=== PATIENT | female | born 1955 | race Caucasian/White ===

== ENCOUNTER → 2017-02-09 | Outpatient (CLI) | payer BC ==
[~2017-02-09] MED LIST: CHOL100027 PO; LEVO75TA PO
--- NOTE | 2017-02-09 16:21 | MAMMOGRAPHY REPORT ---
BILATERAL DIGITAL SCREENING MAMMOGRAM TOMOSYNTHESIS WITH CAD: 02/09/2017 CLINICAL HISTORY: Routine screening. Patient has no complaints. TECHNIQUE: Breast tomosynthesis in addition to standard 2D mammography was performed. Current study was also evaluated with a Computer Aided Detection (CAD) system. COMPARISON: Comparison is made to exams dated: 07/15/2014 mammogram, 06/14/2013 mammogram, 04/24/2012 mammogram, 02/28/2011 mammogram, 02/25/2010 mammogram - [facility], and 01/12/2009. BREAST COMPOSITION: There are scattered areas of fibroglandular density in both breasts. FINDINGS: No suspicious masses, calcifications, or areas of architectural distortion are noted in ei ther breast. There has been no significant interval change compared to prior exams. Focal asymmetry in the right superior breast at approximately 12:00 is stable dating back to at least the 2008 exam. Scattered bilateral benign-appearing calcifications are not significantly changed. IMPRESSION: ACR BI-RADS CATEGORY 2: BENIGN There is no mammographic evidence of malignancy. A 1 year screening mammogram is recommended. The pa tient will receive written notification of the results. Approximately 10% of breast cancers are not detected with mammography. A negative mammographic report should not delay biopsy if a clinically suggestive mass is present. Rain Leo M.D. /:02/09/2017 16:12:15 Medical Authorization Specialist: Justine Christopher, [facility] letter sent: Normal 1/2 BI-RADS Code: ACR BI-RADS Category 2: Benign
== END | disposition home or self-care (01) ==
LOC: C.MAMM 09:31
PROVIDERS: ATTEND Internal Medicine
DX: Z12.31 Encounter for screening mammogram for malignant neoplasm of breast (principal)

== ENCOUNTER 2019-12-29 20:22 | Inpatient (IN) ==
--- NOTE | 2019-12-29 21:07 | Emergency Department Note ---
History of Present Illness General Chief complaint: Flu Like Symptoms Stated complaint: FEVER, SOB, COUGH Time Seen by Provider: 12/29/19 20:47 Source: patient Mode of arrival: ambulatory Limitations: no limitations History of Present Illness Maximum Pain Intensity: 6 This patient comes in after not feeling well for several days. It started on Monday. She tells me she feels she had every COVID symptoms with exception of sore throat and difficulty with taste and smell. She has been laying low and has had no exposure to COVID known her 's been to the store but she has not. Her is well. She has had a headache body aches fever she is had a little bit of a cough as well. Had some nausea and vomiting no significant diarrhea. She has body aches she did have a rash on her arm and her doctor s tart on doxycycline a couple weeks ago. No fall or trauma. No abdominal pain. She says that her main complaint today is that she feels short of breath mostly with exertion. She did get COVID testing yesterday at [facility] but says the results are not back yet. She does have a pulse ox at home and says her worst reading was 92% Home Medications Home Medications Medication Instructions Recorded Confirmed Type levothyroxine 88 mcg capsule 88 mcg PO DAILY 04/17/19 12/29/19 History calcium carbonate-vitamin D3 600 1 tab PO DAILY tab 05/20/19 12/29/19 History mg(1,500 mg)-400 unit chewable tablet mecobalamin (vitamin B12) 1,000 1,000 mcg SL DAILY 05/20/19 12/29/19 History mcg disintegrating tablet,sublingual acetaminophen [Tylenol Extra 1,000 mg PO Q6H PRN 12/29/19 12/29/19 History Strength] anastrozole [Arimidex] 1 mg PO DAILY 12/29/19 12/29/19 History ascorbic acid (vitamin C) [Vitamin 500 mg PO DAILY 12/29/19 12/29/19 History C] Allergies Allergy/AdvReac Type Severity Reaction Status Date / Time No Known Allergies Allergy Mild Verified 12/29/19 21:47 Past Med/Surg History Medical History Anemia (Inactive) Hypercholesteremia (Chronic) Liver cyst (Resolved) Malignant neoplasm of central portion of right breast in female, estrogen receptor positive (Chronic) Surgical History History of appendectomy (Resolved) S/P tonsillectomy and adenoidectomy Family History Mother , age 78 CHF No problems noted. Father , age 81 heart prob also diabetic No problems noted. Sister No problems noted. Sister No problems noted. Brother No problems noted. Brother , age 32 alcoholism No problems noted. Social History Smoking Status: Never smoker Hx Alcohol Use: Yes Alcohol type: hard liquor Alcohol Intake Frequency Comment: 2 drinks per week Hx Substance Use: No Preferred Language: Armenian Visual Impairment: No Limitations Hearing Ability: Normal Beliefs That Will Affect Care: None marital status: Current Living Situation: Spouse current occupational status: employed current occupation: [employer] Feels Safe at Home: Yes Childhood Exposure to Second-Hand Smoke: Yes caffeine: Yes (tea one cup per day) during the past year weight has: increased > 10 lbs Dental Care, Regularly: No Physical Activity Frequency: Does not Exercise Review of Systems A total of 10 systems reviewed and were otherwise negative Physical Exam Vital Signs Vital Signs - 24 hr 12/29/19 20:26 12/29/19 21:30 12/29/19 22:00 Temperature 37.5 C Temperature Source Oral Pulse Rate 123 H 105 H Pulse Rate from SpO2 Sensor 104 H Respiratory Rate 20 20 18 Respiratory Effort / Characteristics Non-Labored Spontaneous Non-Labored Non-Labored Spontaneous Respiratory Depth Normal Blood Pressure 113/71 Blood Pressure Mean 85 Pulse Oximetry 96 96 96 Oxygen Delivery Method Room Air Room Air Room Air Sepsis Recent Fever Within 48 Hours No Sepsis New/Unexplained Change in Mental Status No Sepsis Action Taken by Nursing No Action Required 12/29/19 22:15 12/29/19 22:30 12/29/19 22:31 Temperature Temperature Source Pulse Rate 103 H 105 H 105 H Pulse Rate from SpO2 Sensor 106 H 105 H 105 H Respiratory Rate 16 18 14 Respiratory Effort / Characteristics Non-Labored Spontaneous Respiratory Depth Blood Pressure 128/73 Blood Pressure Mean 94 Pulse Oximetry 94 98 96 Oxygen Delivery Method Room Air Sepsis Recent Fever Within 48 Hours Sepsis New/Unexplained Change in Mental Status Sepsis Action Taken by Nursing 12/29/19 22:45 12/29/19 23:00 12/29/19 23:01 Temperature Temperature Source Pulse Rate 111 H 118 H 121 H Pulse Rate from SpO2 Sensor 101 H 117 H 126 H Respiratory Rate 20 18 14 Respiratory Effort / Characteristics Non-Labored Spontaneous Respiratory Depth Blood Pressure 106/77 Blood Pressure Mean 79 Pulse Oximetry 100 97 100 Oxygen Delivery Method Room Air Sepsis Recent Fever Within 48 Hours Sepsis New/Unexplained Change in Mental Status Sepsis Action Taken by Nursing 12/29/19 23:37 12/29/19 23:38 12/29/19 23:45 Temperature Temperature Source Pulse Rate 106 H 108 H Pulse Rate from SpO2 Sensor 106 H 108 H Respiratory Rate 23 16 Respiratory Effort / Characteristics Respiratory Depth Blood Pressure 136/68 Blood Pressure Mean 80 Pulse Oximetry 97 92 Oxygen Delivery Method Sepsis Recent Fever Within 48 Hours Sepsis New/Unexplained Change in Mental Status Sepsis Action Taken by Nursing 12/29/19 23:46 12/30/19 00:00 12/30/19 00:01 Temperature Temperature Source Pulse Rate 108 H 110 H Pulse Rate from SpO2 Sensor 107 H 110 H Respiratory Rate 22 22 23 Respiratory Effort / Characteristics Non-Labored Spontaneous Non-Labored Spontaneous Respiratory Depth Blood Pressure 148/91 H Blood Pressure Mean 125 Pulse Oximetry 97 96 97 Oxygen Delivery Method Room Air Room Air Sepsis Recent Fever Within 48 Hours Sepsis New/Unexplained Change in Mental Status Sepsis Action Taken by Nursing 12/30/19 00:15 12/30/19 00:30 12/30/19 00:45 Temperature Temperature Source Pulse Rate 105 H 101 H Pulse Rate from SpO2 Sensor 108 H 105 H 101 H Respiratory Rate 26 H 20 17 Respiratory Effort / Characteristics Non-Labored Spontaneous Respiratory Depth Blood Pressure 119/70 Blood Pressure Mean 84 Pulse Oximetry 96 99 97 Oxygen Delivery Method Room Air Sepsis Recent Fever Within 48 Hours Sepsis New/Unexplained Change in Mental Status Sepsis Action Taken by Nursing 12/30/19 01:00 12/30/19 01:01 Temperature Temperature Source Pulse Rate 106 H 97 H Pulse Rate from SpO2 Sensor 106 H 104 H Respiratory Rate 20 21 Respiratory Effort / Characteristics Non-Labored Spontaneous Respiratory Depth Blood Pressure 111/65 Blood Pressure Mean 75 Pulse Oximetry 98 94 Oxygen Delivery Method Room Air Sepsis Recent Fever Within 48 Hours Sepsis New/Unexplained Change in Mental Status Sepsis Action Taken by Nursing General: Well developed well nourished not ill-appearing middle-age female who appears in no acute distress, breathing comfortably on room air. Normal speech HEENT: Normal cephalic atraumatic. Pupils are equal round and reactive to light. Sclera anicteric extraocular movements are intact. Oropharynx is pink with moist mucous membranes. No swelling of the mouth lips or tongue. Neck: Supple with a midline trachea. No meningeal signs or stiffness, no JVD or bruits. No Stridor. Negative Kernig and Brudzinski sign Chest: Clear to auscultation bilaterally. No wheezes or rhonchi. No increased work of breathing. Heart: Regular rate and rhythm without murmurs or gallops. Abdomen: Soft nontender, nondistended without rebound guarding or rigidity. Extremities: No cyanosis clubbing or edema. No calf tenderness or assymetry Spine/Back. Non tender to palpation. No CVA tenderness Skin: Good turgor without rashes. Neurologic exam: Cranial nerves two through 12 are intact. Motor and sensation are intact and symmetrical throughout. Course Administered Medications Discontinued Medications Sodium Chloride (Nss 1000ml) 1,000 mls @ 999 mls/hr IV .Q1H1M ONE Stop: 12/30/19 01:25 Last Admin: 12/30/19 00:37 Dose: 999 mls/hr Documented by: [id number] Ioversol (Optiray 320 125ml) 117 ml IV ONCE ONE Stop: 12/29/19 23:24 Last Admin: 12/29/19 23:23 Dose: 117 ml Documented by: [id number] Potassium Chloride (Klor-Con M20) 40 meq PO NOW STA Stop: 12/30/19 00:33 Last Admin: 12/30/19 00:52 Dose: 40 meq Documented by: [id number] Medical Decision Making Differential Diagnosis Viral illness, tickborne illness, COVID, pneumonia, sepsis, UTI, electrolyte or metabolic abnormality, cardiac disease, PE Medical Records Attestation: I reviewed the patient's medical records. Home Medications Current Medication List: was personally reviewed by me Laboratory Data Attestation: I reviewed the patient's lab results. Result diagrams: 12/29/19 21:30 12/29/19 21:30 Lab Results 12/29/19 12/29/19 12/29/19 Range/Units 21:30 21:30 21:30 WBC 2.32 L (4.8-10.8) K/uL RBC 4.27 (4.2-5.4) M/uL Hgb 12.6 (12.0-16.0) g/dL Hct 37.2 (37-47) % MCV 87.1 (80-100) fL MCH 29.5 (25-34) pg MCHC 33.9 (32-36) g/dL RDW Std Deviation 40.3 (36.4-46.3) fL RDW Coeff of Devin 12.6 (11.5-14.5) % Plt Count 107 L (130-400) K/uL MPV 10.8 H (7.4-10.4) fL Immature Gran % (Auto) 0.4 % Neut % (Auto) 79.4 % Lymph % (Auto) 12.9 % [place] % (Auto) 6.9 % Eos % (Auto) 0.0 % Baso % (Auto) 0.4 % Neut # (Auto) 1.84 (1.4-6.5) K/uL Lymph # (Auto) 0.30 L (1.2-3.4) K/uL [place] # (Auto) 0.16 (0.11-0.59) K/uL Eos # (Auto) 0.00 (0-0.5) K/uL Baso # (Auto) 0.01 (0-0.2) K/uL Immature Gran # (Auto) 0.01 (0.00-0.02) K/uL PT 11.3 (9.0-12.0) Seconds INR 1.1 (0.9-1.1) APTT 30.7 (21.0-31.0) Seconds PTT Ratio 1.1 D-Dimer 3630 H* (0-500) ug/L FEU Sodium 135 L (136-145) mmol/L Potassium 3.1 L (3.5-5.1) mmol/L Chloride 103 (98-107) mmol/L Carbon Dioxide 25 (21-32) mmol/L Anion Gap 7.0 (3-11) BUN 9 (7-18) mg/dl Creatinine 0.93 (0.6-1.2) mg/dl Est Cr Clr Drug Dosing 59.2 ml/min Est GFR ( Amer) 75.3 Est GFR (Non-Af Amer) 64.9 BUN/Creatinine Ratio 9.4 L (10-20) Glucose 109 H (70-99) mg/dl Lactate (0.4-2.0) mmol/L Calcium 9.0 (8.5-10.1) mg/dl Magnesium 2.0 (1.8-2.4) mg/dl Total Bilirubin 0.5 (0.2-1) mg/dl AST 24 (15-37) U/L ALT 26 (12-78) U/L Alkaline Phosphatase 69 (45-117) U/L Troponin I < 0.015 (0-0.045) ng/ml Total Protein 7.2 (6.4-8.2) gm/dl Albumin 3.6 (3.4-5.0) gm/dl Globulin 3.6 (2.5-4.0) gm/dl Albumin/Globulin Ratio 1.0 (0.9-2) TSH 0.300 (0.300-4.500) uIu/ml Urine Color Urine Appearance (Clear) Urine pH (4.5-7.5) Ur Specific Pinson (1.000-1.030) Urine Protein (Negative) Urine Glucose (UA) (Negative) Urine Ketones (Negative) Urine Blood (Negative) Urine Nitrite (Negative) Urine Bilirubin (Negative) Urine Urobilinogen (Negative) Ur Leukocyte Esterase (Negative) Urine WBC (Auto) (0-5) /hpf Urine RBC (Auto) (0-4) /hpf U Hyaline Cast (Auto) (0-5) /lpf U Epithel Cells (Auto) (0-5) /lpf Urine Bacteria (Auto) (Negative) Anaplasma Smear See Comment Lyme Disease IgG Ab (Negative) Lyme Disease IgM Ab (Negative) 12/29/19 12/29/19 12/29/19 Range/Units 21:30 21:30 21:30 WBC (4.8-10.8) K/uL RBC (4.2-5.4) M/uL Hgb (12.0-16.0) g/dL Hct (37-47) % MCV (80-100) fL MCH (25-34) pg MCHC (32-36) g/dL RDW Std Deviation (36.4-46.3) fL RDW Coeff of Devin (11.5-14.5) % Plt Count (130-400) K/uL MPV (7.4-10.4) fL Immature Gran % (Auto) % Neut % (Auto) % Lymph % (Auto) % [place] % (Auto) % Eos % (Auto) % Baso % (Auto) % Neut # (Auto) (1.4-6.5) K/uL Lymph # (Auto) (1.2-3.4) K/uL [place] # (Auto) (0.11-0.59) K/uL Eos # (Auto) (0-0.5) K/uL Baso # (Auto) (0-0.2) K/uL Immature Gran # (Auto) (0.00-0.02) K/uL PT (9.0-12.0) Seconds INR (0.9-1.1) APTT (21.0-31.0) Seconds PTT Ratio D-Dimer (0-500) ug/L FEU Sodium (136-145) mmol/L Potassium (3.5-5.1) mmol/L Chloride (98-107) mmol/L Carbon Dioxide (21-32) mmol/L Anion Gap (3-11) BUN (7-18) mg/dl Creatinine (0.6-1.2) mg/dl Est Cr Clr Drug Dosing ml/min Est GFR ( Amer) Est GFR (Non-Af Amer) BUN/Creatinine Ratio (10-20) Glucose (70-99) mg/dl Lactate 1.7 (0.4-2.0) mmol/L Calcium (8.5-10.1) mg/dl Magnesium (1.8-2.4) mg/dl Total Bilirubin (0.2-1) mg/dl AST (15-37) U/L ALT (12-78) U/L Alkaline Phosphatase (45-117) U/L Troponin I (0-0.045) ng/ml Total Protein (6.4-8.2) gm/dl Albumin (3.4-5.0) gm/dl Globulin (2.5-4.0) gm/dl Albumin/Globulin Ratio (0.9-2) TSH (0.300-4.500) uIu/ml Urine Color Yellow Urine Appearance Clear (Clear) Urine pH 5.5 (4.5-7.5) Ur Specific [place]inson 1.009 (1.000-1.030) Urine Protein Negative (Negative) Urine Glucose (UA) Negative (Negative) Urine Ketones Negative (Negative) Urine Blood Negative (Negative) Urine Nitrite Negative (Negative) Urine Bilirubin Negative (Negative) Urine Urobilinogen Negative (Negative) Ur Leukocyte Esterase Trace H (Negative) Urine WBC (Auto) 1-5 (0-5) /hpf Urine RBC (Auto) 0-4 (0-4) /hpf U Hyaline Cast (Auto) 0 (0-5) /lpf U Epithel Cells (Auto) 10-20 H (0-5) /lpf Urine Bacteria (Auto) Negative (Negative) Anaplasma Smear Lyme Disease IgG Ab Negative (Negative) Lyme Disease IgM Ab Negative (Negative) Imaging Data My Impression: Chest x-ray: No acute infiltrate, failure, pneumothorax seen Radiologist's Impression: CTA of the chest (STAT Rad): No evidence of pulmonary emboli or acute cardiopulmonary process ECG Data Attestation: I personally reviewed and interpreted this ECG as follows: Indication: + SOB/dyspnea Rate (beats per minute): 108 Rhythm: + sinus tachycardia ECG Intervals/blocks: + Normal QRS, + Normal QT and + Normal LA ECG [place]: + Normal ECG ST segments: + Normal ST segments ECG Findings: + PACs; no PVCs Comparison ECG Date: from (01/06/2014) Change: the following changes noted (Rate has increased and PAC is now present) Blood Pressure Blood Pressure Findings: Normal blood pressure Blood Pressure Disposition: did not require urgent referral MDM Narrative This patient comes in as described above. She was placed in room C5 on respiratory isolation given her COVID-like symptoms. She looks well on my exam. She is nontoxic, she is in no respiratory distress. Her pulse is slightly high but she feels she has been dehydrated. A full sepsis work-up was done. She was hydrated with an IV normal saline bolus. She also had a cardiac work-up and tickborne illness work-up as well. She was reassessed frequently. EKG shows sinus tachycardia but no ischemic changes. She has a chest x-ray which does not show congestive heart failure pneumonia or pneumothorax. Her troponin is not elevated. Her white count is low and her platelets are low which could go along with a viral illness or anaplasmosis/tickborne illness. Her initial anaplasmosis smear is negative with a PCR pending. Her Lyme test is negative. Her d-dimer did come back significantly elevated at over 3000. In light of this I did do a chest CT there is no evidence of PE. She has felt weak and short of breath and I think there is a good chance this could be COVID or another viral illness. She still remains tachycardic and was given a liter normal saline bolus. She could also have sepsis with intermittent fevers and I have asked Dr. Middleton to see her in the ER for likely admission/observation. The patient is agreement with the plan. Continuous cardiac monitoring: Due to her chief complaint of shortness of breath she was placed on a classroom monitor. An order was placed in electronic medical record for this. She was noted to be in sinus tachycardia with a rate of 120. Impression & Plan SOB (shortness of breath), Weakness, Sinus tachycardia, Leukopenia, Thrombocyto penia Discharge Plan Visit Data Chief Complaint: Flu Like Symptoms Stated Complaint: FEVER, SOB, COUGH ED Provider: Suleiman Martinez Discharge Problem: SOB (shortness of breath), Weakness, Sinus tachycardia, Leukopenia, Th rombocytopenia Forms Stand Alone Forms: My [facility] Prescriptions Prescriptions: No Action levothyroxine 88 mcg capsule 88 mcg PO DAILY RF: 0 Calcium 600 with Vitamin D3 600 mg(1,500mg) -400 unit tablet,chewable 1 tab PO DAILY RF: 0 mecobalamin (vitamin B12) 1,000 mcg tablet,disintegrating 1,000 mcg SL DAILY RF: 0 anastrozole [Arimidex] 1 mg tablet 1 mg PO DAILY RF: 0 acetaminophen [Tylenol Extra Strength] 500 mg Tablet 1,000 mg PO Q6H PRN (Reason: Fever Or Pain) RF: 0 ascorbic acid (vitamin C) [Vitamin C] 500 mg Tablet 500 mg PO DAILY RF: 0 Discharge Problem: Leukopenia Qualifiers: Leukopenia type: unspecified Qualified Code(s): D72.819 - Decreased white blood cell count, unspecified
[2019-12-29 21:47] LABS: Basophils # (auto) 0.01 K/uL (0-0.2); Basophils % (auto) 0.4 %; Hematocrit (blood only) 37.2 % (37-47); Hemoglobin 12.6 g/dL (12.0-16.0); Immature Granulocytes # (auto) 0.01 K/uL (0.00-0.02); Immature Granulocytes % (auto) 0.4 %; Lymphocytes % (auto) 12.9 %; Mean Corpuscular Hemoglobin 29.5 pg (25-34); Mean Corpuscular Hgb Conc 33.9 g/dL (32-36); Mean Corpuscular Volume 87.1 fL (80-100); Mean Platelet Volume 10.8 fL (7.4-10.4); Monocytes # (auto) 0.16 K/uL (0.11-0.59); Monocytes % (auto) 6.9 %; Neutrophils # (auto) 1.84 K/uL (1.4-6.5); Neutrophils % (auto) 79.4 %; Platelet Count 107 K/uL (130-400); RDW Coefficient of Variation 12.6 % (11.5-14.5); RDW Standard Deviation 40.3 fL (36.4-46.3); Red Blood Count 4.27 M/uL (4.2-5.4); White Blood Count 2.32 K/uL (4.8-10.8)
[2019-12-29 22:03] LABS: Alanine Aminotransferase 26 U/L (12-78); Albumin Level 3.6 gm/dl (3.4-5.0); Aspartate Aminotransferase 24 U/L (15-37); BUN Creatinine Ratio 9.4 (10-20); Blood Urea Nitrogen 9 mg/dl (7-18); Carbon Dioxide 25 mmol/L (21-32); Chloride 103 mmol/L (98-107); Creatinine Clr Calc Pharmacy 59.2 ml/min; Est GFR (African American) 75.3; Est GFR (Non-African American) 64.9; Glucose 109 mg/dl (70-99); Potassium 3.1 mmol/L (3.5-5.1); Sodium 135 mmol/L (136-145)
[2019-12-29 22:05] LABS: Appearance Urine Clear (Clear); Bilirubin Urine Negative (Negative); Blood Urine Negative (Negative); Color Urine Yellow; Glucose Urine UA Negative (Negative); Ketones Urine Negative (Negative); Leukocyte Esterase Urine Trace (Negative); Nitrite Urine Negative (Negative); Protein Urine Negative (Negative); Specific Gravity Urine 1.009 (1.000-1.030); Urobilinogen Urine Negative (Negative); pH Urine 5.5 (4.5-7.5)
[2019-12-29 22:06] LABS: INR 1.1 (0.9-1.1); Partial Thromboplastin Ratio 1.1; Partial Thromboplastin Time 30.7 Seconds (21.0-31.0); Prothrombin Time 11.3 Seconds (9.0-12.0)
[2019-12-29 22:07] LABS: Alkaline Phosphatase 69 U/L (45-117); Bilirubin,Total 0.5 mg/dl (0.2-1); Globulin 3.6 gm/dl (2.5-4.0); Total Protein 7.2 gm/dl (6.4-8.2); Troponin I < 0.015 ng/ml (0-0.045)
[2019-12-29 22:16] LABS: D Dimer 3630 ug/L FEU (0-500)
[2019-12-29 22:19] LABS: Bacteria Urine Automated Negative (Negative); Cast Urine Automated 0 /lpf (0-5); RBC Urine Automated 0-4 /hpf (0-4)
[2019-12-29 22:39] LABS: Lyme Ab IgG w/WB Rflx Negative (Negative); Lyme Ab IgM w/WB Rflx Negative (Negative)
[2019-12-29] MEDS ORDERED: OPTIRAY 320 125ml IV ONE (23:23)
[2019-12-30] MEDS ORDERED: SODIUM CHLORIDE 0.9% 1000ML 1,000 ML IV ONE (00:25)
[2019-12-30] MEDS ORDERED: POTASSIUM CHLORIDE 20 MEQ TABCR PO STA (00:32)
[2019-12-30] MEDS ORDERED: POTASSIUM CHLORIDE 40 MEQ in SODIUM CHLORIDE 0.9% 1000ML 1,000 ML IV STA (00:54)
[2019-12-30] MEDS ORDERED: DOXYCYCLINE HYCLATE 100 MG in DEXTROSE 5% 100 ML IV STA (01:42)
--- NOTE | 2019-12-30 01:42 | History & Physical Report ---
Date of Service December 30, 2019 Assessment & Plan (1) Sepsis: Secondary to complicated bronchitis Neutropenia, thrombocytopenia secondary to above hx breast cancer right status post surgery, radiation on Arimide hypothyroidism, euthyroid as of today's TSH Medical telemetry Cultures, doxycycline IVF DVT prophylaxis. SCDs RE thrombocytopenia Full code Text document was generated using [employer] voice recognition software. It may contain grammatical or spelling errors. Kindly contact undersigned for clarification of any documentation item in question. History of Present Illness Chief Complaint: Fever, chills Primary Care Provider: Jane Max MD History obtained from patient and records. Medical history significant for breast cancer right status post surgery, radiation on Arimidex, hypothyroidism, hyperlipidemia as per records. Patient has not been well the last 10 days. Cough symptoms initially dry later noted to be junky. No aspiration. Poor appetite. Sore throat and body aches. Nausea emesis without diarrhea. Shortness of breath mostly on exertion. No chest pain. COVID swab from PCPs office from 2 days ago still pending. Patient brought by to the ER for further evaluation. Medical History as above October 2019 outpatient doxycycline course for possible tick bite infection. 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 Allergies Allergy/AdvReac Type Severity Reaction Status Date / Time No Known Allergies Allergy Mild Verified 12/29/19 21:47 Home Medications Home Medications Medication Instructions Recorded Confirmed Type levothyroxine 88 mcg capsule 88 mcg PO DAILY 04/17/19 12/29/19 History calcium carbonate-vitamin D3 600 1 tab PO DAILY tab 05/20/19 12/29/19 History mg(1,500 mg)-400 unit chewable tablet mecobalamin (vitamin B12) 1,000 1,000 mcg SL DAILY 05/20/19 12/29/19 History mcg disintegrating tablet,sublingual acetaminophen [Tylenol Extra 1,000 mg PO Q6H PRN 12/29/19 12/29/19 History Strength] anastrozole [Arimidex] 1 mg PO DAILY 12/29/19 12/29/19 History ascorbic acid (vitamin C) [Vitamin 500 mg PO DAILY 12/29/19 12/29/19 History C] Past Med/Surg History Medical History Anemia (Inactive) Hypercholesteremia (Chronic) Liver cyst (Resolved) Malignant neoplasm of central portion of right breast in female, estrogen receptor positive (Chronic) Surgical History History of appendectomy (Resolved) S/P tonsillectomy and adenoidectomy Family History Mother , age 78 CHF No problems noted. Father , age 81 heart prob also diabetic No problems noted. Sister No problems noted. Sister No problems noted. Brother No problems noted. Brother , age 32 alcoholism No problems noted. Social History Smoking Status: Never smoker Hx Alcohol Use: Yes Alcohol type: hard liquor Alcohol Intake Frequency Comment: 2 drinks per week Hx Substance Use: No Preferred Language: German Visual Impairment: No Limitations Hearing Ability: Normal Beliefs That Will Affect Care: None marital status: Current Living Situation: Spouse current occupational status: employed current occupation: [employer] Feels Safe at Home: Yes Childhood Exposure to Second-Hand Smoke: Yes caffeine: Yes (tea one cup per day) during the past year weight has: increased > 10 lbs Dental Care, Regularly: No Physical Activity Frequency: Does not Exercise Review of Systems Review of Systems: As per HPI, all 10 systems reviewed, all other ROS negative Physical Exam Physical Exam: GENERAL: Comfortable, pleasant, wane, no respiratory distress SKIN: Normal color, warm HEENT: [place] palpebral conjunctivae, no ptosis, dry buccal mucosa NECK : Supple, no tenderness CHEST : Decreased breath sounds , no tenderness HEART : Tachycardic , no obvious murmurs ABDOMEN: Some distention, nontender EXTREMITIES : No LE swelling/tenderness, no other conspicuous deformities noted NEUROLOGIC : Coherent, no facial asymmetry, no other gross focality Results & Data Results & Data ([facility]) Vital Signs (Past 12 Hours) Vital Signs Temp Pulse Resp BP Pulse Ox 12/30/19 01:01 97 H 21 94 12/30/19 01:00 106 H 20 111/65 98 12/30/19 00:45 101 H 17 97 12/30/19 00:30 105 H 20 119/70 99 12/30/19 00:15 26 H 96 12/30/19 00:01 110 H 23 97 12/30/19 00:00 108 H 22 148/91 H 96 12/29/19 23:46 22 97 12/29/19 23:45 108 H 16 92 12/29/19 23:38 106 H 23 97 12/29/19 23:37 136/68 12/29/19 23:01 121 H 14 106/77 100 12/29/19 23:00 118 H 18 97 12/29/19 22:45 111 H 20 100 12/29/19 22:31 105 H 14 128/73 96 12/29/19 22:30 105 H 18 98 12/29/19 22:15 103 H 16 94 12/29/19 22:00 105 H 18 96 12/29/19 21:30 20 96 12/29/19 20:26 37.5 C 123 H 20 113/71 96 Laboratory Results Laboratory Results WBC 2.32 K/uL (4.8-10.8) L 12/29/19 21:30 RBC 4.27 M/uL (4.2-5.4) 12/29/19 21:30 Hgb 12.6 g/dL (12.0-16.0) 12/29/19 21:30 Hct 37.2 % (37-47) 12/29/19 21:30 MCV 87.1 fL (80-100) 12/29/19 21:30 MCH 29.5 pg (25-34) 12/29/19 21:30 MCHC 33.9 g/dL (32-36) 12/29/19 21:30 RDW Std Deviation 40.3 fL (36.4-46.3) 12/29/19 21:30 RDW Coeff of Devin 12.6 % (11.5-14.5) 12/29/19 21:30 Plt Count 107 K/uL (130-400) L 12/29/19 21:30 MPV 10.8 fL (7.4-10.4) H 12/29/19 21:30 Immature Gran % (Auto) 0.4 % 12/29/19 21:30 Neut % (Auto) 79.4 % 12/29/19 21:30 Lymph % (Auto) 12.9 % 12/29/19 21:30 [place] % (Auto) 6.9 % 12/29/19 21:30 Eos % (Auto) 0.0 % 12/29/19 21:30 Baso % (Auto) 0.4 % 12/29/19 21:30 Neut # (Auto) 1.84 K/uL (1.4-6.5) 12/29/19 21:30 Lymph # (Auto) 0.30 K/uL (1.2-3.4) L 12/29/19 21:30 [place] # (Auto) 0.16 K/uL (0.11-0.59) 12/29/19 21:30 Eos # (Auto) 0.00 K/uL (0-0.5) 12/29/19 21:30 Baso # (Auto) 0.01 K/uL (0-0.2) 12/29/19 21:30 Immature Gran # (Auto) 0.01 K/uL (0.00-0.02) 12/29/19 21:30 PT 11.3 Seconds (9.0-12.0) 12/29/19 21:30 INR 1.1 (0.9-1.1) 12/29/19 21:30 APTT 30.7 Seconds (21.0-31.0) 12/29/19 21:30 PTT Ratio 1.1 12/29/19 21:30 D-Dimer 3630 ug/L FEU (0-500) H* 12/29/19 21:30 Sodium 135 mmol/L (136-145) L 12/29/19 21:30 Potassium 3.1 mmol/L (3.5-5.1) L 12/29/19 21:30 Chloride 103 mmol/L (98-107) 12/29/19 21:30 Carbon Dioxide 25 mmol/L (21-32) 12/29/19 21:30 Anion Gap 7.0 (3-11) 12/29/19 21:30 BUN 9 mg/dl (7-18) 12/29/19 21:30 Creatinine 0.93 mg/dl (0.6-1.2) 12/29/19 21:30 Est Cr Clr Drug Dosing 59.2 ml/min 08/02/20 21:30 Est GFR ( Amer) 75.3 12/29/19 21:30 Est GFR (Non-Af Amer) 64.9 12/29/19 21:30 BUN/Creatinine Ratio 9.4 (10-20) L 12/29/19 21:30 Glucose 109 mg/dl (70-99) H 12/29/19 21:30 Lactate 1.7 mmol/L (0.4-2.0) 12/29/19 21:30 Calcium 9.0 mg/dl (8.5-10.1) 12/29/19 21:30 Magnesium 2.0 mg/dl (1.8-2.4) 12/29/19 21:30 Total Bilirubin 0.5 mg/dl (0.2-1) 12/29/19 21:30 AST 24 U/L (15-37) 12/29/19 21:30 ALT 26 U/L (12-78) 12/29/19 21:30 Alkaline Phosphatase 69 U/L (45-117) 12/29/19 21:30 Troponin I < 0.015 ng/ml (0-0.045) 12/29/19 21:30 Total Protein 7.2 gm/dl (6.4-8.2) 12/29/19 21:30 Albumin 3.6 gm/dl (3.4-5.0) 12/29/19 21:30 Globulin 3.6 gm/dl (2.5-4.0) 12/29/19 21:30 Albumin/Globulin Ratio 1.0 (0.9-2) 12/29/19 21:30 TSH 0.300 uIu/ml (0.300-4.500) 12/29/19 21:30 Urine Color Yellow 12/29/19 21:30 Urine Appearance Clear (Clear) 12/29/19 21:30 Urine pH 5.5 (4.5-7.5) 12/29/19:30 Ur Specific [place] 1.009 (1.000-1.030) 12/29/19 21:30 Urine Protein Negative (Negative) 12/29/19 21:30 Urine Glucose (UA) Negative (Negative) 12/29/19 21:30 Urine Ketones Negative (Negative) 12/29/19 21: Urine Blood Negative (Negative) 12/29/19 21:30 Urine Nitrite Negative (Negative) 12/29/19 21:30 Urine Bilirubin Negative (Negative) 12/29/19 21:30 Urine Urobilinogen Negative (Negative) 12/29/19 21:30 Ur Leukocyte Esterase Trace (Negative) H 12/29/19 21:30 Urine WBC (Auto) 1-5 /hpf (0-5) 12/29/19 21:30 Urine RBC (Auto) 0-4 /hpf (0-4) 12/29/19 21:30 U Hyaline Cast (Auto) 0 /lpf (0-5) 12/29/19 21:30 U Epithel Cells (Auto) 10-20 /lpf (0-5) H 12/29/19 21:30 Urine Bacteria (Auto) Negative (Negative) 12/29/19 21:30 Anaplasma Smear See Comment 12/29/19 21:30 Lyme Disease IgG Ab Negative (Negative) 12/29/19 21:30 Lyme Disease IgM Ab Negative (Negative) 12/29/19 21:[address] chest initial read no evidence of pulmonary emboli or acute cardiopulmonary process EKG as per my interpretation : Rate 110, sinus tachycardia, normal axis, no ischemia
[2019-12-30] MEDS ORDERED: IBUPROFEN 200 MG TAB PO PRN (05:05)
[2019-12-30] MEDS ORDERED: PROMETHAZINE HCL 12.5 MG in SODIUM CHLORIDE 0.9% 50 ML IV PRN (05:05)
[2019-12-30] MEDS ORDERED: TRAMADOL HCL 50 MG TABLET PO PRN (05:05)
[2019-12-30] MEDS: ACETAMINOPHEN 325 MG TAB PO PRN ×2 (05:49→15:35)
[2019-12-30] MEDS ORDERED: POTASSIUM CHLORIDE 40 MEQ in SODIUM CHLORIDE 0.9% 1000ML 1,000 ML IV ONE (07:30)
--- NOTE | 2019-12-30 07:39 | CT Scan Report ---
CT ANGIOGRAM OF THE CHEST CLINICAL HISTORY: Sepsis. COMPARISON STUDY: Chest x-ray dated 12/29/2019. TECHNIQUE: Following the IV administration of 117 cc of Optiray 320, CT angiogram of the chest was pe rformed from the upper abdomen to the thoracic inlet utilizing the pulmonary embolus protocol. Images are reviewed in the axial, sagittal, and coronal planes. 3-D MIPS images are created and assessed. I V contrast was administered without complication. A dose lowering technique was utilized adhering to the principles of ALARA. CT DOSE: 396.11 mGycm FINDINGS: Thyroid: Imaged portions of the thyroid gland are normal in size and attenuation. Thoracic aorta: The thoracic aorta is normal in caliber and demonstrates standard 3-vessel arch anato my. No dissection is seen. Pulmonary vasculature: The pulmonary trunk is normal in caliber. There are no filling defects identif ied in main, lobar, or segmental pulmonary branches to suggest pulmonary embolus. Heart: The heart is normal in size and without pericardial effusion. Lungs and pleural spaces: Evaluation of the lung parenchyma is degraded by motion artifact. The trach ea and central airways are clear. Biapical scarring is observed. There are trace pleural effusions wi th dependent atelectasis. No airspace consolidation is seen typical for pneumonia. Mediastinum: There is no mediastinal lymphadenopathy. Cindy: Clear. Axillae: Shotty left axillary lymph nodes measure up to 8 mm short axis. These appear hypervascular. No right axillary adenopathy is identified. Upper abdomen: The liver is heterogeneous. There are at least 5 pathologically indeterminant low atte nuation hepatic lesions which measure up to 1.3 cm (agency service representative lesions are seen on images #12, #1 7, and #30). Skeletal structures: The skeletal structures are osteopenic. No lytic or blastic bony lesions are see n. IMPRESSION: 1. There is no evidence of pulmonary embolus in the main, lobar, or segmental pulmonary arteries. 2. Trace pleural effusions. 3. There is no airspace consolidation typical for pneumonia. 4. There are at least 5 pathologically indeterminant hepatic lesions. Several of these appear to demo nstrate peripheral discontinuous nodular enhancement, and although incompletely characterized these m ay represent hemangiomas. Correlation with any prior outside imaging studies will be required. If def initive characterization is desired a nonemergent contrast-enhanced MRI of the liver would be appropr iate. 5. Prominent left axillary lymph nodes are nonspecific. Clinical correlation will be required. ACT 112: Negative or not required by law. Electronically signed by: Alex James M.D. 12/30/2019 7:38 AM
[2019-12-30] MEDS: LEVOTHYROXINE SODIUM 88 MCG TABLET PO SCH (07:47)
--- NOTE | 2019-12-30 07:58 | XRay Report ---
XR chest 1V portable CLINICAL HISTORY: SEPSIS COMPARISON STUDY: 01/06/2014 FINDINGS: The cardiac and mediastinal contours are normal. There is no evidence of focal pulmonary co nsolidation. There is no evidence of failure. No pleural effusions are visualized.[ IMPRESSION: No active disease in the chest. ACT 112: Negative or not required by law. Electronically signed by: Nicho Palencia M.D. 12/30/2019 7:57 AM
[2019-12-30 08:41] LABS: Hematocrit (blood only) 32.9 % (37-47); Hemoglobin 11.1 g/dL (12.0-16.0); Mean Corpuscular Hemoglobin 29.5 pg (25-34); Mean Corpuscular Hgb Conc 33.7 g/dL (32-36); Mean Corpuscular Volume 87.5 fL (80-100); RDW Coefficient of Variation 12.8 % (11.5-14.5); RDW Standard Deviation 41.2 fL (36.4-46.3); Red Blood Count 3.76 M/uL (4.2-5.4); White Blood Count 2.13 K/uL (4.8-10.8)
[2019-12-30 09:12] LABS: BUN Creatinine Ratio 8.6 (10-20); Calcium 8.2 mg/dl (8.5-10.1); Creatinine Clr Calc Pharmacy 64.7 ml/min; Est GFR (African American) 83.9; Est GFR (Non-African American) 72.4; Potassium 3.8 mmol/L (3.5-5.1)
--- NOTE | 2019-12-30 09:23 | Ultrasound Report ---
ULTRASOUND BILATERAL LOWER EXTREMITY VENOUS CLINICAL HISTORY: Dyspnea. COMPARISON STUDY: Right lower extremity venous ultrasound dated 08/06/2015. TECHNIQUE: Real-time, grayscale, and color Doppler sonography of the deep veins of the right and left lower extremity was performed from the inguinal crease to the calf. Compression and augmentation wer e utilized. FINDINGS: There is no sonographic evidence of deep venous thrombosis identified in the right or left lower extremity. The common femoral, superficial femoral, and popliteal veins are patent and normally compressible bilaterally. The greater saphenous vein and the profunda femoris vein at the junction w ith the common femoral vein are clear in both legs. The visualized calf veins are patent bilaterally. IMPRESSION: There is no sonographic evidence of deep venous thrombosis identified in the right or lef t lower extremity. ACT 112: Negative or not required by law. Electronically signed by: Alex James M.D. 12/30/2019 9:22 AM
[2019-12-30] MEDS: ANASTROZOLE 1 MG TAB PO SCH (09:32)
[2019-12-30] MEDS: CYANOCOBALAMIN 500 MCG TABLET (VITAMIN B-12) PO SCH (09:32)
[2019-12-30 09:48] LABS: Mean Platelet Volume 10.4 fL (7.4-10.4); Platelet Count 84 K/uL (130-400)
[2019-12-30 10:18] LABS: Anaplasmosis Smear(Rpt to DOH) Pos for Anaplasma
[2019-12-30 10:23] LABS: Basophils # (auto) 0.01 K/uL (0-0.2); Basophils % (auto) 0.5 %; Immature Granulocytes # (auto) 0.01 K/uL (0.00-0.02); Immature Granulocytes % (auto) 0.5 %; Lymphocytes # (auto) 0.47 K/uL (1.2-3.4); Lymphocytes % (auto) 22.1 %; Monocytes # (auto) 0.16 K/uL (0.11-0.59); Monocytes % (auto) 7.5 %; Neutrophils # (auto) 1.48 K/uL (1.4-6.5); Neutrophils % (auto) 69.4 %
--- NOTE | 2019-12-30 17:07 | Hospitalist Progress Note ---
Date of Service December 30, 2019 Assessment & Plan (1) Sepsis: Sepsis Sources: Anaplasmosis, acute bronchitis Meets SIRS criteria Continue IV Fluids, Abx Blood/Urine Cx:pending Mildly elevated Procalcitonin Anaplasmosis Peripheral smear/Serology suggestive of anaplasmosis Continue Doxycycline Plan to complete 10 day course of Abx Pancytopenia Likely due to above No bleeding issues Monitor CBC Acute Bronchitis CTA: No Pneumonia COVID screen: Negative Continue Doxycycline Hepatic Lesions H/O Hepatic Cyst as per patient Noted on CT ABD --CT ABD:There are at least 5 pathologically indeterminant hepatic lesions. Several of these appear to demonstrate peripheral discontinuous nodular enhancement, and although incompletely characterized these may represent hemangiomas. Correlation with any prior outside imaging studies will be required. If definitive characterization is desired a nonemergent contrast- enhanced MRI of the liver would be appropriate. --Advised liver MRI as outpatient --Further work-up and management as outpatient H/O Breast cancer S/P Lumpectomy and radiation Last Radiaition therapy in May [address]Veeral Max Prominent left axillary lymph nodes on CT likely due to above Continue Anastrozole Hypothyroidism Normal TSH Continue levothyroxine Hypokalemia Metabolic acidosis Likely secondary to GI losses Treat electrolytes as needed Continue IV fluids DVT Px: SCDs Re:Thrombocytopenia Code Status Full code Disposition Expect to discharge home when medically stable Admission and Anticipated Discharge Date Admission Date: December 30, 2019 Subjective Patient is seen and examined at bedside Feels better today States having cough with minimal expectoration Denies chest pain, SOB, dizziness Denies recently tick bite but was unsure Peripheral smear suggestive of Anaplasmosis Review of Systems Review of Systems: All systems reviewed & are unremarkable except as noted in HPI & below Physical Exam Physical Exam: Physical Exam: Vitals signs as noted above General Appearance:Moderately built and nourished, no apparent distress Head: normocephalic, Atraumatic Eyes: normal inspection, EOMI Neck: supple, Trachea midline Respiratory/Chest: Normal breath sounds, CTA Cardiovascular: S1, S2, No murmur Abdomen/GI:Soft, Non tender, Bowel sounds present Extremities/Musculoskelatal:normal inspection, no edema Neurologic/Psych:AAOX3, grossly no focal neurological deficits Skin: normal color, warm Results & Data Results & Data ([facility]) Vital Signs (Past 12 Hours) Vital Signs Temp Pulse Pulse Resp BP Pulse Ox 12/30/19 15:19 37.2 C 94 H 18 105/69 97 12/30/19 11:26 37.2 C 95 H 16 90/52 L 98 12/30/19 07:38 101 H 12/30/19 07:08 37.0 C 104 H 16 90/45 L 95 12/30/19 06:11 37.9 C H 103 H 22 108/70 Laboratory Results Short CBC 12/29/19 12/30/19 Range/Units 21:30 08:25 WBC 2.32 L 2.13 L (4.8-10.8) K/uL Hgb 12.6 11.1 L (12.0-16.0) g/dL Hct 37.2 32.9 L (37-47) % Plt Count 107 L 84 L (130-400) K/uL BMP 12/29/19 12/30/19 21:30 08:25 Sodium 135 L 140 Potassium 3.1 L 3.8 D Chloride 103 111 H Carbon Dioxide 25 20 L BUN 9 7 Creatinine 0.93 0.85 Glucose 109 H 122 H Calcium 9.0 8.2 L Cardiac Enzymes 12/29/19 Range/Units 21:30 Troponin I < 0.015 (0-0.045) ng/ml Liver Function 12/29/19 Range/Units 21:30 Total Bilirubin 0.5 (0.2-1) mg/dl AST 24 (15-37) U/L ALT 26 (12-78) U/L Alkaline Phosphatase 69 (45-117) U/L Albumin 3.6 (3.4-5.0) gm/dl Urine 12/29/19 Range/Units 21:30 Urine Color Yellow Urine Appearance Clear (Clear) Urine pH 5.5 (4.5-7.5) Ur Specific [place] 1.009 (1.000-1.030) Urine Protein Negative (Negative) Urine Glucose (UA) Negative (Negative)
[2019-12-30] MEDS ORDERED: LACTATED RINGER'S 1,000 ML IV SCH (17:15)
--- NOTE | 2019-12-30 17:48 | Electrocardiogram Report ---
Test Reason : Blood Pressure : / mmHG Vent. Rate : 108 BPM Atrial Rate : 108 BPM P-R Int : 128 ms QRS Dur : 074 ms QT Int : 304 ms P-R-T Axes : 061 062 038 degrees QTc Int : 407 ms Sinus tachycardia with Premature atrial complexes Otherwise normal ECG When compared with ECG of 06-JAN-2014 11:23, Premature atrial complexes are now Present Confirmed by Armaan Javier ([id number]) on 12/30/2019 5:48:07 PM Referred By: REFERRED SELF Confirmed By:Rodrigue Javier
[2019-12-30] MEDS: DOXYCYCLINE HYCLATE 100 MG CAP PO SCH (20:29)
[2019-12-31] MEDS: ACETAMINOPHEN 325 MG TAB PO PRN ×2 (03:43→16:18)
[2019-12-31] MEDS: LEVOTHYROXINE SODIUM 88 MCG TABLET PO SCH (06:07)
[2019-12-31 06:24] LABS: Hematocrit (blood only) 33.6 % (37-47); Hemoglobin 11.4 g/dL (12.0-16.0); Mean Corpuscular Hemoglobin 29.7 pg (25-34); Mean Corpuscular Hgb Conc 33.9 g/dL (32-36); Mean Corpuscular Volume 87.5 fL (80-100); RDW Coefficient of Variation 12.8 % (11.5-14.5); RDW Standard Deviation 41.3 fL (36.4-46.3); Red Blood Count 3.84 M/uL (4.2-5.4); White Blood Count 3.01 K/uL (4.8-10.8)
[2019-12-31 06:53] LABS: Mean Platelet Volume 11.5 fL (7.4-10.4); Platelet Count 86 K/uL (130-400)
[2019-12-31 06:58] LABS: BUN Creatinine Ratio 12.4 (10-20); Calcium 8.8 mg/dl (8.5-10.1); Creatinine Clr Calc Pharmacy 81.4 ml/min; Est GFR (African American) 107.1; Est GFR (Non-African American) 92.4; Magnesium 1.9 mg/dl (1.8-2.4); Potassium 3.7 mmol/L (3.5-5.1)
[2019-12-31 07:03] LABS: Basophils # (auto) 0.04 K/uL (0-0.2); Basophils % (auto) 1.3 %; Eosinophils # (auto) 0.01 K/uL (0-0.5); Eosinophils % (auto) 0.3 %; Immature Granulocytes # (auto) 0.01 K/uL (0.00-0.02); Immature Granulocytes % (auto) 0.3 %; Lymphocytes # (auto) 0.92 K/uL (1.2-3.4); Lymphocytes % (auto) 30.6 %; Monocytes # (auto) 0.34 K/uL (0.11-0.59); Monocytes % (auto) 11.3 %; Neutrophils # (auto) 1.69 K/uL (1.4-6.5); Neutrophils % (auto) 56.2 %
[2019-12-31] MEDS: CYANOCOBALAMIN 500 MCG TABLET (VITAMIN B-12) PO SCH (08:35)
[2019-12-31] MEDS: ANASTROZOLE 1 MG TAB PO SCH (08:35)
[2019-12-31] MEDS: DOXYCYCLINE HYCLATE 100 MG CAP PO SCH ×2 (08:35→20:34)
--- NOTE | 2019-12-31 15:53 | Hospitalist Progress Note ---
Date of Service December 31, 2019 Assessment & Plan (1) Sepsis: Sepsis Sources: Anaplasmosis, acute bronchitis Meets SIRS criteria Negative COVID Screen Received IV Fluids Continue Abx Blood/Urine Cx:No growth to date Mildly elevated Procalcitonin Anaplasmosis Peripheral smear/Serology suggestive of anaplasmosis Lyme Screen:Negative Continue Doxycycline Plan to complete 10 day course of Abx Pancytopenia Likely due to above No bleeding issues WBC, Platelet count slightly improving Monitor CBC Acute Bronchitis CTA: No Pneumonia COVID screen: Negative Continue Doxycycline Hepatic Lesions H/O Hepatic Cyst as per patient Noted on CT ABD --CT ABD:There are at least 5 pathologically indeterminant hepatic lesions. Several of these appear to demonstrate peripheral discontinuous nodular enhancement, and although incompletely characterized these may represent h emangiomas. Correlation with any prior outside imaging studies will be required. If definitive characterization is desired a nonemergent contrast-enhanced MRI of the liver would be appropriate. --Advised liver MRI as outpatient--Patient agrees with plan --Further work-up and management as outpatient H/O Breast cancer S/P Lumpectomy and radiation Last Radiation therapy in May [address]Veeral Max Prominent left axillary lymph nodes on CT likely due to above Continue Anastrozole Hypothyroidism Normal TSH Continue levothyroxine Hypokalemia Metabolic acidosis Likely secondary to GI losses Treat electrolytes as needed Continue IV fluids DVT Px: SCDs Re:Thrombocytopenia Code Status Full code Disposition Expect to discharge home tomorrow if continues to improve Admission and Anticipated Discharge Date Admission Date: December 30, 2019 Subjective Patient is seen and examined at bedside Minimal cough with clear expectoration No new complaints Denies chest pain, SOB, dizziness, nausea, abd pain Offers no other complaints Review of Systems Review of Systems: All systems reviewed & are unremarkable except as noted in HPI & below Physical Exam Physical Exam: Physical Exam: Vitals signs as noted above General Appearance:Moderately built and nourished, no apparent distress Head: normocephalic, Atraumatic Eyes: normal inspection, EOMI Neck: supple, Trachea midline Respiratory/Chest: Normal breath sounds, CTA Cardiovascular: S1, S2, No murmur Abdomen/GI:Soft, Non tender, Bowel sounds present Extremities/Musculoskelatal:normal inspection, no edema Neurologic/Psych:AAOX3, grossly no focal neurological deficits Skin: normal color, warm Results & Data Results & Data ([facility]) Vital Signs (Past 12 Hours) Vital Signs Temp Pulse Pulse Resp BP Pulse Ox 12/31/19 15:18 37.4 C 93 H 18 118/75 95 12/31/19 12:45 36.7 C 95 H 16 126/82 95 12/31/19 07:36 80 12/31/19 07:20 37.2 C 87 16 112/69 95 12/31/19 03:51 37.2 C 79 18 118/74 100 Laboratory Results Short CBC 12/31/19 Range/Units 05:59 WBC 3.01 L (4.8-10.8) K/uL Hgb 11.4 L (12.0-16.0) g/dL Hct 33.6 L (37-47) % Plt Count 86 L (130-400) K/uL BMP 12/31/19 05:59 Sodium 140 Potassium 3.7 Chloride 109 H Carbon Dioxide 24 BUN 8 Creatinine 0.68 Glucose 84 Calcium 8.8
[2020-01-01 05:52] LABS: Basophils # (auto) 0.04 K/uL (0-0.2); Basophils % (auto) 1.2 %; Eosinophils # (auto) 0.06 K/uL (0-0.5); Eosinophils % (auto) 1.8 %; Hemoglobin 11.6 g/dL (12.0-16.0); Lymphocytes # (auto) 1.53 K/uL (1.2-3.4); Lymphocytes % (auto) 46.1 %; Mean Corpuscular Hemoglobin 29.6 pg (25-34); Mean Corpuscular Hgb Conc 34.1 g/dL (32-36); Mean Corpuscular Volume 86.7 fL (80-100); Monocytes # (auto) 0.43 K/uL (0.11-0.59); Neutrophils # (auto) 1.26 K/uL (1.4-6.5); Neutrophils % (auto) 37.9 %; Platelet Count 107 K/uL (130-400); RDW Coefficient of Variation 12.7 % (11.5-14.5); RDW Standard Deviation 40.8 fL (36.4-46.3); Red Blood Count 3.92 M/uL (4.2-5.4); White Blood Count 3.32 K/uL (4.8-10.8)
[2020-01-01 06:24] LABS: Calcium 8.4 mg/dl (8.5-10.1); Creatinine Clr Calc Pharmacy 83.1 ml/min; Est GFR (African American) 108.2; Est GFR (Non-African American) 93.4; Magnesium 2.1 mg/dl (1.8-2.4); Potassium 3.9 mmol/L (3.5-5.1)
[2020-01-01] MEDS: LEVOTHYROXINE SODIUM 88 MCG TABLET PO SCH (06:30)
[2020-01-01 07:06] LABS: ALC (manual) 1.47 K/uL (1.2-3.4); ANC (manual) 1.44 K/uL (1.4-6.5); Basophils # (manual) 0.09 K/uL (0-0.2); Basophils % (manual) 2.7 %; Eosinophils # (manual) 0.12 K/uL (0-0.5); Eosinophils % (manual) 3.5 %; Lymphocytes # (manual) 0.85 K/uL (1.2-3.4); Lymphocytes % (manual) 25.7 %; Monocytes # (manual) 0.21 K/uL (0.11-0.59); Monocytes % (manual) 6.2 %; Neutrophils # (manual) 1.44 K/uL (1.4-6.5); Neutrophils % (manual) 43.3 %; RBC Morphology Unremarkable; Reactive Lymphocytes # (manual) 0.62 K/uL; Reactive Lymphocytes % (manual) 18.6 %
[2020-01-01] MEDS: ANASTROZOLE 1 MG TAB PO SCH (08:17)
[2020-01-01] MEDS: CYANOCOBALAMIN 500 MCG TABLET (VITAMIN B-12) PO SCH (08:17)
[2020-01-01] MEDS: DOXYCYCLINE HYCLATE 100 MG CAP PO SCH (08:17)
--- NOTE | 2020-01-01 11:06 | Hospitalist Progress Note ---
Date of Service January 01, 2020 Assessment & Plan (1) Sepsis: Anaplasmosis Peripheral smear/Serology suggestive of anaplasmosis Lyme Screen:Negative Continue Doxycycline Denies any symptoms today Plan to complete 10 day course of Abx on discharge Sepsis Sources: Anaplasmosis, acute bronchitis Meets SIRS criteria Negative COVID Screen Received IV Fluids Blood/Urine Cx:No growth to date Mildly elevated Procalcitonin No signs and/or symptoms of sepsis as of today there is 01/01/2020 Pancytopenia Likely secondary to anaplasmosis White blood cell count is improved to 3.32, hemoglobin remains stable at 11.6 and platelet is improved to 107 as of 01/01/2020 Acute Bronchitis CTA: No Pneumonia COVID screen: Negative Continue Doxycycline Hepatic Lesions H/O Hepatic Cyst as per patient Noted on CT ABD --CT ABD:There are at least 5 pathologically indeterminant hepatic lesions. Several of these appear to demonstrate peripheral discontinuous nodular enhancement, and although incompletely characterized these may represent hemangiomas. Correlation with any prior outside imaging studies will be required. If definitive characterization is desired a nonemergent contrast- enhanced MRI of the liver would be appropriate. --Advised liver MRI as outpatient--Patient agrees with plan --Further work-up and management as outpatient H/O Breast cancer S/P Lumpectomy and radiation Last Radiation therapy in May [address]Veeral Max Prominent left axillary lymph nodes on CT likely due to above Continue Anastrozole Hypothyroidism Normal TSH Continue levothyroxine Hypokalemia Metabolic acidosis Likely secondary to GI losses Potassium is normalized DVT Px: SCDs Re:Thrombocytopenia Code Status Full code Disposition Discharge home this afternoon Admission and Anticipated Discharge Date Admission Date: December 30, 2019 Subjective The patient was seen and examined in medical telemetry unit She has been feeling a lot better this morning Denies any cough, shortness of breath, fever and/or chills, no abdominal pain nausea and or vomiting Has been ambulating in the room without any symptoms Review of Systems Review of Systems: All systems reviewed and are unremarkable except as noted below Respiratory: no cough and no dyspnea Gastrointestinal: no abdominal pain, no nausea and no vomiting Physical Exam Physical Exam: Lying in bed comfortably Constitutional: well developed, well nourished and + obese; no acute distress and not ill appearing Eyes: PERRL, conjunctivae normal, anicteric sclerae ENMT: external ear and nose normal, oropharynx normal Neck: trachea midline, no thyromegaly Respiratory: normal respiratory effort; no respiratory distress Auscultation: lungs clear to auscultation bilaterally Cardiovascular: Rate/Rhythm: regular rate and regular rhythm Heart Sounds: no murmur Gastrointestinal (Abdomen): Inspection/Auscultation: abdomen normal to inspection and normal bowel sounds; abdomen not distended Percussion/Palpation: abdomen soft; abdomen nontender Musculoskeletal: No acute arthritis involving any joints Neurologic: moves all extremities; no focal motor deficits Alert, awake and oriented x3 Lymphatic: no cervical or axillary lymphadenopathy Results & Data Results & Data ([facility]) Vital Signs (Past 12 Hours) Vital Signs Temp Pulse Pulse Resp BP Pulse Ox 01/01/20 08:00 79 01/01/20 07:11 36.9 C 77 16 109/72 96 01/01/20 03:22 36.6 C 76 18 110/70 96 01/01/20 00:32 74 12/31/19 23:34 36.6 C 78 16 100/65 97 Laboratory Results Short CBC 01/01/20 Range/Units 05:35 WBC 3.32 L (4.8-10.8) K/uL Hgb 11.6 L (12.0-16.0) g/dL Hct 34.0 L (37-47) % Plt Count 107 L (130-400) K/uL BMP 01/01/20 05:35 Sodium 141 Potassium 3.9 Chloride 109 H Carbon Dioxide 26 BUN 10 Creatinine 0.66 Glucose 88 Calcium 8.4 L Medications Administered Current Inpatient Medications Acetaminophen (Tylenol) 650 mg PO Q4H PRN PRN Reason: Pain or Fever Stop: 01/29/20 05:04 Last Admin: 12/31/19 16:18 Dose: 650 mg Documented by: Anastrozole (Arimidex) 1 mg PO DAILY [facility] Stop: 01/29/20 08:59 Last Admin: 01/01/20 08:17 Dose: 1 mg Documented by: Cyanocobalamin (Vitamin B-12) 1,000 mcg PO DAILY [facility] Stop: 01/29/20 08:59 Last Admin: 01/01/20 08:17 Dose: 1,000 mcg Documented by: Doxycycline Hyclate (Vibramycin) 100 mg PO BID [facility] Stop: 01/06/20 20:59 Last Admin: 01/01/20 08:17 Dose: 100 mg Documented by: Promethazine HCl 12.5 mg/ (Sodium Chloride) 50.5 mls @ 202 mls/hr IV Q6H PRN PRN Reason: Nausea And Vomiting Stop: 01/29/20 05:04 Ibuprofen (Advil) 200 mg PO Q6H PRN PRN Reason: Mild Pain Stop: 01/29/20 05:04 Levothyroxine Sodium (Synthroid) 88 mcg PO DAILYBB [facility] Stop: 01/29/20 06:29 Last Admin: 01/01/20 06:30 Dose: 88 mcg Documented by: Tramadol HCl (Ultram) 25 - 50 mg PO Q4H PRN PRN Reason: Pain Stop: 01/29/20 05:04
[2020-01-01 11:11] VITALS: BP 116/77; TEMP 97.9; O2SAT 98
[2020-01-01 14:28] VITALS: PULSE 94
--- NOTE | 2020-01-02 07:53 | Discharge Summary ---
Date of Service January 02, 2020 Admission HPI Per Admitting Provider History obtained from patient and records. Medical history significant for breast cancer right status post surgery, radiation on Arimidex, hypothyroidism, hyperlipidemia as per records. Patient has not been well the last 10 days. Cough symptoms initially dry later noted to be junky. No aspiration. Poor appetite. Sore throat and body aches. Nausea emesis without diarrhea. Shortness of breath mostly on exertion. No chest pain. COVID swab from PCPs office from 2 days ago still pending. Patient brought by to the ER for further evaluation. Medical History as above October 2019 outpatient doxycycline course for possible tick bite infection. 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 Admission Exam Per Admitting Provider Physical Exam: GENERAL: Comfortable, pleasant, wane, no respiratory distress SKIN: Normal color, warm HEENT: [place] palpebral conjunctivae, no ptosis, dry buccal mucosa NECK : Supple, no tenderness CHEST : Decreased breath sounds , no tenderness HEART : Tachycardic , no obvious murmurs ABDOMEN: Some distention, nontender EXTREMITIES : No LE swelling/tenderness, no other conspicuous deformities noted NEUROLOGIC : Coherent, no facial asymmetry, no other gross focality Principal Diagnosis Sepsis, anaplasmosis, acute bronchitis,Hepatic lesions-likely hemangiomas-Needs follow up Discharge Exam Constitutional well developed, well nourished and + obese; no acute distress and not ill appearing Eyes PERRL, conjunctivae normal, anicteric sclerae ENMT external ear and nose normal, oropharynx normal Neck trachea midline, no thyromegaly Respiratory normal respiratory effort; no respiratory distress Auscultation: lungs clear to auscultation bilaterally Cardiovascular Rate/Rhythm: regular rate and regular rhythm Heart Sounds: no murmur Gastrointestinal (Abdomen) Inspection/Auscultation: abdomen normal to inspection and normal bowel sounds; abdomen not distended Percussion/Palpation: abdomen soft; abdomen nontender Neurologic moves all extremities; no focal motor deficits Lymphatic no cervical or axillary lymphadenopathy Discharge Data Allergies Allergy/AdvReac Type Severity Reaction Status Date / Time No Known Allergies Allergy Mild Verified 12/29/19 21:47 Consultations 12/30/19 00:29 ED Decision to Admit Stat Ordered Studies 12/29/19 22:19 CT angio chest PE protocol Stat 12/30/19 09:00 US venous doppler LE BI Routine Hospital Course (1) Sepsis: Anaplasmosis Peripheral smear/Serology suggestive of anaplasmosis Lyme Screen:Negative Continue Doxycycline Denies any symptoms today Plan to complete 10 day course of Abx on discharge Hepatic Lesions H/O Hepatic Cyst as per patient Noted on CT ABD --CT ABD:There are at least 5 pathologically indeterminant hepatic lesions. Several of these appear to demonstrate peripheral discontinuous nodular enhancement, and although incompletely characterized these may represent hemangiomas. Correlation with any prior outside imaging studies will be required. If definitive characterization is desired a nonemergent contrast- enhanced MRI of the liver would be appropriate. --Advised liver MRI as outpatient--Patient agrees with plan --Further work-up and management as outpatient Sepsis Sources: Anaplasmosis, acute bronchitis Meets SIRS criteria Negative COVID Screen Received IV Fluids Blood/Urine Cx:No growth to date Mildly elevated Procalcitonin No signs and/or symptoms of sepsis as of today there is 01/01/2020 Pancytopenia Likely secondary to anaplasmosis White blood cell count is improved to 3.32, hemoglobin remains stable at 11.6 and platelet is improved to 107 as of 01/01/2020 Acute Bronchitis CTA: No Pneumonia COVID screen: Negative Continue Doxycycline H/O Breast cancer S/P Lumpectomy and radiation Last Radiation therapy in May [address]Veeral Max Prominent left axillary lymph nodes on CT likely due to above Continue Anastrozole Hypothyroidism Normal TSH Continue levothyroxine Hypokalemia Metabolic acidosis Likely secondary to GI losses Potassium is normalized DVT Px: SCDs Re:Thrombocytopenia Code Status Full code Disposition Discharge home this afternoon Total Time Total Time Spent Total Time Spent (In Minutes): 35 minutes Discharge Plan Discharge Items Patient Disposition: Home - Self-Care Reason For Visit: SEPSIS, DC ISOL, COVID NEG Discharge Diagnosis: Sepsis, anaplasmosis, acute bronchitis Condition on Discharge: Good Activity: Resume your previous activity Non-emergency contact: Primary Care Provider Call non-emergency contact if: you have any medication questions and your symptoms worsen Follow-up/Referrals: Milka Dunham MD [Primary Care Provider] - 01/07/20 11:20 am (01/07/2020 11:20 AM Provider Jane Max MD Department General Internal Medicine [facility] ) Diet: Heart Healthy Addtl Attending Provider Instructions: Please finish the course of antibiotic. Please do not take your calcium tablet as long as you are on antibiotic. The lesions in your liver will need to have a follow-up as an outpatient.-Your primary care provider will be notified Pending Studies at Discharge: No Stand-Alone Forms: My [facility], Smoking Cessation Medications and DC Order Prescriptions: New doxycycline hyclate 100 mg Capsule 100 mg PO BID 8 Days Qty: 16 RF: 0 Lactinex 1 million cell tablet,chewable 1 tab PO BID Qty: 30 RF: 0 Continued levothyroxine 88 mcg capsule 88 mcg PO DAILY RF: 0 Calcium 600 with Vitamin D3 600 mg(1,500mg) -400 unit tablet,chewable 1 tab PO DAILY RF: 0 mecobalamin (vitamin B12) 1,000 mcg tablet,disintegrating 1,000 mcg SL DAILY RF: 0 anastrozole [Arimidex] 1 mg tablet 1 mg PO DAILY RF: 0 acetaminophen [Tylenol Extra Strength] 500 mg Tablet 1,000 mg PO Q6H PRN (Reason: Fever Or Pain) RF: 0 ascorbic acid (vitamin C) [Vitamin C] 500 mg Tablet 500 mg PO DAILY RF: 0 Discharge Orders: Discharge Order (Routine); Ordered 01/01/20 Ordered By: Jeromy Donovan Admission Data Admit Date/Time: 12/30/19 02:11 Attending Provider: Jeromy Donovan Admit Provider: Favio Lopez Primary Care Provider: Milka Dunham Other Providers: Favio Lopez ; Renzo Gambino Other Interventions: Discharge Summary Assessment (RN) Last Done: 01/01/20 14:27 DC Date/Time DO NOT enter until pt leaves facility: 01/01/20 14:47
== END 2020-01-01 14:47 | disposition home or self-care (01) | DRG 872 ==
LOC: ED 20:22 → SUATTDRO 12-30 02:11 → 2N 12-30 02:11